=== PATIENT | male | born 1980 | race Two or more races ===

== ENCOUNTER 2018-12-07 00:57 | Emergency (ER) | payer OTHER ==
[~2018-12-07] VITALS: Ht 180.3 cm; Wt 77.1 kg
[2018-12-07] MEDS ORDERED: NKM (01:02)
--- NOTE | 2018-12-07 01:12 | Emergency Room Report ---
History of Present Illness General Chief Complaint: Chest Pain Source: Patient Present Illness HPI This is a 39-year-old male with a history of methamphetamine abuse. He said he smoked some methamphetamine around 3 PM today. Around 6 PM he started developing left-sided chest pain. He said pain is severe and crampy. Pain radiated to his neck and down his whole left side. No focal deficit. No nausea no vomiting. No fever or chills. Never had this problem before. He called 911 and was given nitroglycerin and aspirin. Did not help with his pain. Pain is 10 out of 10. Allergies: Coded Allergies: No Known Allergies (Unverified , 12/07/18) Patient History Past Medical History: see triage record, old chart reviewed Past Surgical History: none Pertinent Family History: none Social History: Reports: smoking, drug use Immunizations: other Reviewed Nursing Documentation: PMH: Agreed; PSxH: Agreed Nursing Documentation-PMH Hx Neurological Problems: Yes - alcohol withdrawal Review of Systems Eye: Denies: eye pain, blurred vision ENT: Denies: ear pain, nose congestion, throat swelling Respiratory: Denies: cough, shortness of breath Cardiovascular: Reports: chest pain; Denies: palpitations Gastrointestinal: Denies: abdominal pain, diarrhea, nausea, vomiting Musculoskeletal: Denies: back pain, joint pain Skin: Denies: rash Neurological: Denies: headache, numbness Endocrine: Denies: increased thirst, increased urine Hematologic/Lymphatic: Denies: easy bruising All Other Systems: negative except mentioned in HPI Physical Exam Vital Signs Date Time Temp Pulse Resp B/P (MAP) Pulse Ox O2 Delivery O2 Flow Rate FiO2 12/07/18 00:59 97.5 133 22 136/80 97 Room Air vitals with tachycardia Sp02 EP Interpretation: reviewed, normal General Appearance: well appearing, no apparent distress, alert Head: normocephalic, atraumatic Eyes: bilateral eye PERRL, bilateral eye EOMI ENT: hearing grossly normal, normal pharynx Neck: full range of motion, supple, no meningismus Respiratory: chest non-tender, lungs clear, normal breath sounds Cardiovascular #1: regular rate, rhythm, no murmur Gastrointestinal: normal bowel sounds, non tender, no mass, no organomegaly, no bruit, non-distended Musculoskeletal: back normal, gait/station normal, normal range of motion Neurologic: alert, oriented x3 Psychiatric: anxious Skin: warm/dry Medical Decision Making Diagnostic Impression: Primary Impression: Chest pain Qualified Codes: R07.9 - Chest pain, unspecified Additional Impressions: Methamphetamine abuse Alcoholic hepatitis without ascites ER Course patient presets with chest pain. Most likely anxiety related from drug abuse. He felt better after Ativan. Heart rate is normalized now. Troponin negative 2. We'll discharge home. He is homeless but does not want to go to a penitentiary. Said he wants to sleep tonight and go in the morning. He did admit to drinking alcohol tonight. This may explain the elevated liver enzyme. Lab Results Impression labs with elevated liver enzymes EKG Diagnostic Results Rate: tachycardiac Rhythm: NSR ST Segments: no acute changes Last Vital Signs Date Time Temp Pulse Resp B/P (MAP) Pulse Ox O2 Delivery O2 Flow Rate FiO2 12/07/18 00:59 97.5 133 22 136/80 97 Room Air Status: improved Disposition: HOME, SELF-CARE Condition: Stable Patient Instructions: Nonspecific Chest Pain Additional Instructions: Stop using drugs. Follow-up with rehabilitation in 7 days. Return if worse. Angus Lynne MD Dec 07, 2018 01:12
[2018-12-07] MEDS ORDERED: Ketorolac 30mg Inj IV ONE (01:15)
[2018-12-07] MEDS ORDERED: LORazepam Inj 2mg/ml 1ml IV ONE (01:15)
[2018-12-07 01:20] VITALS: BP 136/80
--- NOTE | 2018-12-07 01:21 | NUR ---
ED Nurse Note: Patient describes the pain as pressure and tightness.
--- NOTE | 2018-12-07 01:21 | NUR ---
ED Nurse Note: Patient BIBA Sq 7 c/o left sided chest pain radiating to left arm and neck since 1800 after "snorting" methamphetamine at 1500. Patient AOx4, HR 133, other VSS, no s/s of acute resp distress noted at this time. patient reports 8/10 pain. Patient given 3x doses of NTG LEAD [employer]AMP AGENT and 324 mg of ASA LEAD RAMP AGENT with no relief. Patient seen by WALTER. Patient helped to [employer], connected to threat monitoring analyst.
[2018-12-07 01:24] LABS: BASOPHILS % (AUTO) 1.6 % (0.0-2.0); EOSINOPHILS % (AUTO) 0.1 % (0.0-3.0); HEMATOCRIT 42.6 % (42.0-52.0); HEMOGLOBIN 14.7 G/DL (14.2-18.0); LYMPHOCYTES % (AUTO) 38.5 % (20.0-45.0); MEAN CORPUSCULAR VOLUME 99 FL (80-99); MONOCYTES % (AUTO) 5.6 % (1.0-10.0); NEUTROPHILS % (AUTO) 54.2 % (45.0-75.0); PLATELET COUNT 282 K/UL (150-450); RED BLOOD COUNT 4.29 M/UL (4.70-6.10); RED CELL DISTRIBUTION WIDTH 11.4 % (11.6-14.8); WHITE BLOOD COUNT 7.9 K/UL (4.8-10.8)
[2018-12-07 01:37] LABS: ANION GAP 14 mmol/L (5-15); BLOOD UREA NITROGEN 9 mg/dL (7-18); CALCIUM 9.2 MG/DL (8.5-10.1); CARBON DIOXIDE 25 MMOL/L (21-32); CHLORIDE 103 MMOL/L (98-107); CREATININE 0.9 MG/DL (0.55-1.30); POTASSIUM 3.7 MMOL/L (3.5-5.1); SODIUM 142 MMOL/L (136-145)
[2018-12-07 01:51] LABS: ALANINE AMINOTRANSFERASE 113 U/L (12-78); ALBUMIN 3.8 G/DL (3.4-5.0); ALKALINE PHOSPHATASE 93 U/L (46-116); ASPARTATE AMINO TRANSFERASE 106 U/L (15-37); BILIRUBIN,TOTAL 0.4 MG/DL (0.2-1.0); CKMB 2.5 NG/ML (0.0-3.6); CREATINE KINASE 192 U/L (26-308)
--- NOTE | 2018-12-07 03:00 | NUR ---
ED Nurse Note: Patient sleeping comfortably on gurney. Breathing is even and unlabored. No s/s of acute distress noted at this time.
[2018-12-07 03:05] LABS: BILIRUBIN, URINE NEGATIVE (NEGATIVE); COLOR,URINE PALE YELLOW; GLUCOSE, URINE (UA) NEGATIVE (NEGATIVE); KETONES,URINE NEGATIVE (NEGATIVE); LEUKOCYTE ESTERASE ,URINE 1+ (NEGATIVE); NITRITE,URINE NEGATIVE (NEGATIVE); PH,URINE 7 (4.5-8.0); PROTEIN,URINE 2+ (NEGATIVE); UROBILINOGEN,URINE NORMAL MG/DL (0.0-1.0)
[2018-12-07 03:06] LABS: APPEARANCE,URINE CLEAR
--- NOTE | 2018-12-07 04:00 | NUR ---
ED Nurse Note: Repeat troponin drawn and sent to lab.
[2018-12-07] MEDS ORDERED: chlordiazePOXIDE 25mg Cap ONE (04:59)
[2018-12-07] MEDS ORDERED: chlordiazePOXIDE 25mg Cap ORAL ONE (05:00)
[2018-12-07 05:30] VITALS: BP 142/88
--- NOTE | 2018-12-07 06:00 | NUR ---
Homeless Discharge: Patient is being discharged from medical care. Awake, alert and oriented x3. After care instructions, including referral to community resources were given. Patient verbalized understanding of After care instructions; at this time patient does not request medications, equipment or placement. Patient signed patient consent in the medical record for patient destination upon discharge. All medical devices such as IV and ID band were removed. Patient ambulated out with all personal belongings with steady gait.
[2018-12-07 06:01] VITALS: BP 142/88
--- NOTE | 2018-12-07 10:54 | Diagnostic Imaging Report ---
Indication: Chest pain Technique: One view of the chest Comparison: none Findings: Lungs and pleural spaces are clear. Heart size is normal Impression: No acute process
== END 2018-12-07 06:01 | disposition home or self-care (01) ==
LOC: EDBD 00:57 → EMR 01:09 → EDBD 01:09 → EMR 06:01
DX: R07.89 Other chest pain (principal); F15.10 Other stimulant abuse, uncomplicated; K70.10 Alcoholic hepatitis without ascites; F17.200 Nicotine dependence, unspecified, uncomplicated
CPT/HCPCS: 36415; 71045; 80053; 81003; 82550; 82553; 84484; 85025; 96361; 96374; 96375; 99284; J1885